=== PATIENT | male | born 1975 | race Caucasian/White ===

== ENCOUNTER 2020-03-02 12:17 | Outpatient (CLI) | payer OTHER | END 2020-03-02 12:28 | disposition home or self-care (01) | LOC: RAD 12:17 | PROVIDERS: ATTEND Orthopaedic Surgery | DX: M25.572 Pain in left ankle and joints of left foot (principal) ==

== ENCOUNTER 2020-03-11 14:35 | Outpatient (CLI) | payer OTHER | END 2020-03-11 14:44 | disposition home or self-care (01) | LOC: RAD 14:35 | PROVIDERS: ATTEND Orthopaedic Surgery | DX: M25.572 Pain in left ankle and joints of left foot (principal) ==